=== PATIENT | female | born 2005 | race Caucasian/White ===

== ENCOUNTER 2023-05-30 14:29 | Emergency (ER) | payer MEDICAID, SELFPAY ==
[2023-05-30 14:30] VITALS: BP 131/80; PULSE 109; RESP 18; TEMP 36.6; O2SAT 93; BMI 39.3
--- NOTE | 2023-05-30 15:45 | EX.ED.DYSGE1 ---
HPI History of Present Illness Chief Complaint: Depression Informant: patient and spouse/S.O. Narrative Narrative: 18-year-old female 7 weeks G1, P0 presenting to the emergency room with depression. Patient states that in March she moved from [place] to [place] to be with her significant other's family. She is not currently working. She states that over the past months she has had worsening depression. She notes difficulty with sleep as well as some anorexia. She states that she feels hungry but when she attempts to eat or thinks about eating hunger dissipates. She occasionally has a cigarette. No alcohol use or drug use. She states that over the past 3 days she has been feeling worse. She has occasional intrusive thoughts of suicide but has no plan and does not believe that she will complete or attempt suicide. The patient states that she was seeing a counselor in the fourth of the fifth grade for depression. Otherwise she has not been treated for depression. She states that 1 or 2 weeks ago she filled out a questionnaire with her internet marketing strategist regarding depression symptoms. She does not know the results. She states that she has not had any complications with . She is taking vitamins but no other medications. PFSH PFSH Allergy/AdvReac Type Severity Reaction Status Date / Time No Known Allergies Allergy Verified 05/30/23 14:30 Social History Smoking Status: Current every day smoker tobacco type: e-cigarettes ROS ROS ED Constitutional Constitutional ED: Denies chills, fever(s) or weight loss Eyes Eyes: Denies change in vision or diplopia ENT ENT ED: Denies ear pain, rhinorrhea or sore throat Cardiovascular Cardiovascular: Denies chest pain, orthopnea, palpitations or racing heartbeat Respiratory/Chest Respiratory/Chest: Denies cough, dyspnea or orthopnea Gastrointestinal Gastrointestinal: Denies abdominal pain, diarrhea, nausea or vomiting Genitourinary Genitourinary ED: Denies dysuria, hematuria or urinary frequency Musculoskeletal Musculoskeletal: Denies arthralgias, myalgias or neck pain Integumentary Denies abscess or rash Neurologic Neurologic: Denies headache(s) or weakness Psychiatric Psychiatric: Reports depression and suicidal thoughts; Denies anxiety or suicidal ideation Endocrine Endocrinology: Denies polydipsia, polyphagia or polyuria Allergic/Immunologic Allergic/Immunologic ED: Denies mouth swelling, tongue swelling or urticaria EXAM Physical Exam Const Vital Signs: 05/30/23 14:30 Temperature 97.8 F Temperature Source Temporal Pulse Rate 109 H Respiratory Rate 18 Blood Pressure 131/80 H Blood Pressure Mean 97 Pulse Ox 93 Oxygen Delivery Method Room Air Positive well nourished and well developed General Appearance ED: well developed HEENT Reports normocephalic, head/scalp atraumatic and moist mucous membranes Eyes PERRL and EOMs intact bilaterally Neck no lymphadenopathy, supple and no JVD Resp normal respiratory effort and clear to auscultation bilaterally Cardio regular rate, regular rhythm and no murmurs GI normal to inspection, nondistended, normoactive bowel sounds and non-tender Palpation: soft Back/Spine no CVA tenderness and normal ROM Extremity normal to inspection General Extremety ED: Negative for edema General Extremity: Negative for edema Neuro oriented x3 and CN's II-XII intact bilaterally Sensorium / Orientation: alert Motor Exam: strength 5/5 throughout Psych mental status grossly normal Psych Narrative: Patient reports feeling depressed. She makes eye contact. She readily answers questions and provides details. I feel that she is forthcoming with information. She states that she has occasional thoughts of suicide but has no specific plan and the thoughts are intermittent in nature. Patient is well-kept. Appearance: grossly normal Attitude: calm and engaged Activity / Motor Behavior: appropriate eye contact Speech: normal speech Mood & Affect: depressed; Negative for tearful Thought Process: normal thought process Thought Content: normal thought content Attention / Concentration: attention grossly intact Memory / Cognition: memory grossly intact Insight: insight good Judgement: judgement good Skin no rashes or lesions noted and no wounds MDM MDM MDM Narrative Medical decision making narrative: I spoke with crisis/mental health counselor. I will have them speak with the patient. Patient was assessed by crisis. We are both in agreement that the patient is not actively suicidal. She would benefit from long-term help with her mental health. She was given resources and crisis will follow back up with her. Patient states that the plan is very clear to her and she plans on calling her [employer] resources tomorrow. History & Record Review Discussion w/independent historian: Patient and Significant other Management Discussion w/another healthcare provider: Behavioral health Discharge Plan Triage Chief Complaint: Depression ED Provider: Shaquille Arenas Dx/Rx/DC Orders Clinical Impression: Depression affecting in third trimester, antepartum Instructions: Depression: Tips to Help Yourself, CONTRACT, No Harm Primary Care Provider: Care Physician,No Primary Activity Restrictions/Additional Instructions: As discussed with crisis, please follow-up with Bryan lopez. If you feel you are worsening or potential danger to yourself or others please return to the nearest emergency department Disposition Disposition: Home, Self Care
[2023-05-30 17:39] VITALS: BP 126/97; PULSE 81; RESP 20; TEMP 36.6; O2SAT 100
== END 2023-05-30 17:40 | disposition home or self-care (01) ==
PROVIDERS: Emergency Provider Emergency Medicine; Visit Provider Emergency Medicine
DX: O99.341 Other mental disorders complicating pregnancy, first trimester (principal); R45.851 Suicidal ideations; F32.A Depression, unspecified; O99.331 Smoking (tobacco) complicating pregnancy, first trimester; F17.210 Nicotine dependence, cigarettes, uncomplicated; F17.290 Nicotine dependence, other tobacco product, uncomplicated; Z3A.01 Less than 8 weeks gestation of pregnancy
CPT/HCPCS: 99282

== ENCOUNTER 2023-08-26 09:00 | Inpatient (IN) | payer MEDICAID, SELFPAY ==
[2023-08-26] VITALS (17 sets, daily range): BP systolic 118–135; BP diastolic 58–79; PULSE 65–107; RESP 14–18; TEMP 36.4–36.9; O2SAT 99–100; BMI 44.2
--- NOTE | 2023-08-26 09:21 | PCM.HP.OB ---
HPI - General General Date of Admission: 08/26/23 Date of Service: 08/26/23 Chief Complaint: elective IOL HPI Narrative VANDANA DALE, is a 18 F who presents elevtive IOL with BMI>40 Maternal Data Information Final MIKE: 09/02/23 Gestational age: 39 PFSH PFSH Medical History Heartburn during Obesity HPV (human papilloma virus) infection Anxiety Depression Vaping nicotine dependence, tobacco product Allergy/AdvReac Type Severity Reaction Status Date / Time No Known Allergies Allergy Verified 08/26/23 10:19 Family History (Updated 08/26/23 @ 10:17 by Juju Cervantes) Father Addiction to drug Mother Addiction to drug Surgical History (Updated 08/26/23 @ 10:15 by Juju Cervantes) History of tonsillectomy and adenoidectomy Social History Smoking Status: Current every day smoker tobacco type: e-cigarettes History 1 Elective abortions Hx Para 0 Spontaneous abortions Hx # Term Pregnancies Ectopic pregnancies Hx # Pregnancies Multiple births # of living children NST FHR Rate Baby A Baseline: 130 Variability:: Moderate Accelerations:: 15 x 15 Decelerations:: None NST Reactive:: Yes FHR Category:: Category I Uterine Activity:: quiet ROS Constitutional Constitutional: Denies fatigue, fever(s) or malaise Eyes Eyes: Denies change in vision ENT HEENT: Denies dizziness or headache(s) Cardiovascular Cardiovascular: Denies chest pain, dyspnea or lightheadedness Respiratory/Chest Respiratory/Chest: Denies cough or dyspnea Gastrointestinal Gastrointestinal: Denies change in bowel habits Genitourinary Genitourinary: Denies burning urination or genital lesions Integumentary Integumentary: Denies rash Neurologic Neurologic: Denies confusion, dizziness, headache(s), numbness or weakness Physical Exam Const alert and no apparent distress General Appearance: cooperative HEENT normocephalic Resp normal respiratory effort GI soft to palpation GI Narrative: gravid, nontender, appropriate for gestational age Extremity no calf tenderness General Extremity: edema Skin no wounds Rashes: No rashes noted Psych activity/motor behavior normal Labs Labs Labs: Blood Type O POSITIVE Antibody Screen NEGATIVE Hct 33.8 % (37-47) L Hgb 11.0 g/dL (12.0-15.0) L Syphilis Total Ab Non-reactive Assessment & Plan (1) BMI greater than 40: (2) 39 weeks gestation of : PLAN: Plan Cytotec IOL Stringer bulb prn
[2023-08-26 09:55] LABS: Absolute Lymphocyte Count 2.48 X10^3/uL (0.83-4.51); Absolute Neutrophil Count 9.4 X10^3/uL (2.0-7.7); Basophil# 0.04 X10^3/uL; Basophil% 0.3 % (0-1); Eosinophil# 0.06 X10^3/uL; Eosinophils% 0.5 % (0-5); Hematocrit 33.8 % (37-47); Lymphocyte # 2.48 X10^3/ul (0.83-4.51); Lymphocyte % 19.1 % (19-41); Mean Corp Hgb Conc 32.5 g/dL (32-36); Mean Corpuscular Hgb 30.2 pg (27.0-32.0); Mean Corpuscular Volume 92.9 fL (81-99); Monocyte# 0.93 X10^3/uL; Monocyte% 7.2 % (0-10); NRBC Flagged by Analyzer 0 % (0-5); Neutrophil # 9.44 X10^3/uL (2.7-7.7); Neutrophil % 72.5 % (47-70); Platelet Count 246 K/mm3 (150-450); RBC Distribution Width CV 13.2 % (11.6-14.6); RBC Distribution Width SD 44.6 fl (35.1-43.9); Red Blood Count 3.64 M/mm3 (4.2-5.4)
[2023-08-26] MEDS: 0.9% Saline Lock 10 ML Syringe IV (10:09)
[2023-08-26] MEDS: miSOPROStol 25 MCG TABLET VAGINAL ×2 (10:09→14:08)
[2023-08-26 10:28] LABS: Syphilis Antibodies Non-reactive
--- NOTE | 2023-08-26 15:09 | PCM.PN.OB ---
Subjective Subjective Stringer bulb placed with 60 cc. without difficulty. 2/50/-2 Objective Data Objective Data Vital Signs: Vital Signs Temp Pulse Resp BP Pulse Ox 97.6 F L 67 16 118/58 L 99 08/26/23 11:02 08/26/23 11:58 08/26/23 11:57 08/26/23 11:58 08/26/23 11:57 Weight: 148.041 kg Body Mass Index (BMI) 44.2 Intake & Output: Intake and Output for Last 24 Hours 08/24/23 08/25/23 08/26/23 23:59 23:59 23:59 Output Total 250 / 250 Balance -250 / -250 Lab / Micro Data 08/26/23 09:45 Labs: Laboratory Results - last 24 hr 08/26/23 09:45: WBC 13.0 H, RBC 3.64 L, Hgb 11.0 L, Hct 33.8 L, MCV 92.9, MCH 30.2, MCHC 32.5, RDW Std Deviation 44.6 H, RDW Coeff of Shmuel 13.2, Plt Count 246, MPV 12.0, Immature Gran % (Auto) 0.400, Neut % (Auto) 72.5 H, Lymph % (Auto) 19.1, Laurens % (Auto) 7.2, Eos % (Auto) 0.5, Baso % (Auto) 0.3, Absolute Neuts (auto) 9.4 H, Absolute Lymphs (auto) 2.48, Nucleated RBC % 0, Syphilis Total Ab Non-reactive, Blood Type O POSITIVE, Antibody Screen NEGATIVE 08/26/23 14:08: Ur Drug Screen Comment NST FHR Rate Baby A Baseline: 150 FHR Category:: Category I Uterine Activity:: q 2 Assessment & Plan (1) 39 weeks gestation of : (2) BMI greater than 40: PLAN: Plan Pitocin when Stringer bulb out
[2023-08-26] MEDS: 0.9% Normal Saline Single 100 ML IV.SOLN. INTRA-UTER (15:10)
--- NOTE | 2023-08-26 15:12 | CASEMGMT ---
Social Work - Labor and Delivery Consult received for: substance abuse, resources and mental health Chart reviewed and noted patient/mother of baby still in labor. Noted in record that MOB has history of depression, with and ED visit to [facility] in May 2023 where MOB was assessed by crisis at [facility]. From records review it MOB was dealing with increased depression, and having some occasional suicidal ideations. Noted in record the reported father of baby reported to have some mental health history (Bipolar) as well. A safety plan was developed for MOB from the ED visit in May 2023. This service writer advisor also noted MOB with some history of THC use, with some occasional use within the last year. This service writer advisor spoke with MOB's labor RN Juju who confirms MOB still in labor. Updated RN of plan for social work to see MOB after delivery and prior to discharge home. MOB with increased risk for mood and anxiety disorders, based on mental history including exacerbation of such during the . Plan: Social work to actively follow for support, resources, and referrals as indicated. -NATIVIDAD Hill
[2023-08-26 16:27] LABS: Amphetamine Urine NEGATIVE (<1000 ng/mL); Barbiturate Urine NEGATIVE (< 200 ng/mL); Benzodiazepine Urine NEGATIVE (< 200 ng/mL); Cocaine Urine NEGATIVE (< 300 ng/mL); Ecstacy Urine NEGATIVE (< 500 ng/mL); Methadone Urine NEGATIVE (< 300 ng/mL); Opiates Urine NEGATIVE (< 300 ng/mL); PCP Urine NEGATIVE (< 25 ng/mL); THC Urine NEGATIVE (< 50 ng/mL); Vista UDS pH Range 6
--- NOTE | 2023-08-26 20:34 | PCM.PN.OB ---
Subjective Subjective AROM for clear fluid. IUPC and FSE placed. 3 cm/80/-2. Pitocin prn Objective Data Objective Data Vital Signs: Vital Signs Temp Pulse Resp BP Pulse Ox 98.4 F 72 17 130/68 H 100 08/26/23 19:22 08/26/23 19:23 08/26/23 19:22 08/26/23 19:21 08/26/23 19:23 Weight: 148.041 kg Body Mass Index (BMI) 44.2 Intake & Output: Intake and Output for Last 24 Hours 08/24/23 08/25/23 08/26/23 23:59 23:59 23:59 Output Total 250 / 250 Balance -250 / -250 Lab / Micro Data 08/26/23 09:45 Labs: Laboratory Results - last 24 hr 08/26/23 09:45: WBC 13.0 H, RBC 3.64 L, Hgb 11.0 L, Hct 33.8 L, MCV 92.9, MCH 30.2, MCHC 32.5, RDW Std Deviation 44.6 H, RDW Coeff of Shmuel 13.2, Plt Count 246, MPV 12.0, Immature Gran % (Auto) 0.400, Neut % (Auto) 72.5 H, Lymph % (Auto) 19.1, Woodson % (Auto) 7.2, Eos % (Auto) 0.5, Baso % (Auto) 0.3, Absolute Neuts (auto) 9.4 H, Absolute Lymphs (auto) 2.48, Nucleated RBC % 0, Syphilis Total Ab Non-reactive, Blood Type O POSITIVE, Antibody Screen NEGATIVE 08/26/23 14:08: Urine Opiates Screen NEGATIVE, Urine Methadone Screen NEGATIVE, Ur Barbiturates Screen NEGATIVE, Ur Phencyclidine Scrn NEGATIVE, Ur Amphetamines Screen NEGATIVE, MDMA (Ecstasy) Screen NEGATIVE, U Benzodiazepines Scrn NEGATIVE, Urine Cocaine Screen NEGATIVE, U Cannabinoids Screen NEGATIVE, Ur Drug Screen Comment NST FHR Rate Baby A Baseline: 140 Variability:: Moderate Accelerations:: 15 x 15 Decelerations:: None NST Reactive:: Yes FHR Category:: Category I Uterine Activity:: irregular Assessment & Plan (1) 39 weeks gestation of : (2) BMI greater than 40:
[2023-08-26] MEDS: Lactated Ringers 1,000 ML 50 ML IV (21:20)
[2023-08-26] MEDS: Oxytocin 15 Units/NS 250ml 15 UNITS/250 ML IV.SOLN 2 UNITS IV (21:25)
[2023-08-26] MEDS: Mag Hydrox/Al Hydrox/Simeth 30 ML UDC PO (23:45)
[2023-08-27] VITALS (97 sets, daily range): BP systolic 99–233; BP diastolic 49–104; PULSE 52–164; RESP 14–22; TEMP 36.1–36.9; O2SAT 96–100
[2023-08-27] MEDS: LACTATED RINGERS 500 ML 999 ML IV ×2 (00:30→02:42)
[2023-08-27] MEDS: fentaNYL-bupivacaine (epidural) 100 ML BAG EPIDURAL ×3 (00:50→12:23)
[2023-08-27] MEDS: Lactated Ringers 1,000 ML 200 ML IV ×3 (05:50→15:39)
[2023-08-27] MEDS: Ondansetron 4 MG/2 ML Vial IV (15:00)
--- NOTE | 2023-08-27 16:16 | EX.PCM.OBRPT ---
Assessment & Plan (1) 39 weeks gestation of : (2) BMI greater than 40: (3) (spontaneous vaginal delivery): Maternal Data Information Final MIKE: 09/02/23 Gestational age: 39+1 Vaginal Delivery Maternal Presentation Maternal Presentation: Medically Indicated Induction Maternal Presentation: IOL of labor BMI >40 Type of Induction: Pitocin, Stringer Bulb, Amniotomy and Cytotec Operative Information Date of Procedure: 08/27/23 Pre-Operative Diagnosis: Term Post-Operative Diagnosis: same Surgery / Procedure Performed: Spontaneous Vaginal Delivery Type of Anesthesia: Epidural Drain: Stringer to straight drain Estimated Blood Loss: 100 cc Time of Delivery: 16:03 Findings Description of Procedure: Patient progressed to complete over an intact perineum. Pushed through two contractions and delivered DIONISIO. The anterior and posterior shoulder delivered without difficulty. The infant was placed on the maternal abdomen. The cord was clamped and cut. Cord blood was collected. The placenta was delivered with manual traction. There were no lacerations. Presentation: Vertex and DIONISIO Amniotic Membrane Rupture Type: Artificial Amniotic Fluid Description: Clear Placental Delivery Description: Spontaneous Placenta Disposition: [facility] Cord Vessel Description: 3 Vessels Cord Entanglement: None Infant A Gender: Female (1 minute): 9 (5 minute): 9 Delayed Cord Clamping: Yes Post Vaginal Delivery Medications Given After Delivery: IV Pitocin Episiotomy Description: None Laceration: None Complication Complications: None
[2023-08-27] MEDS: Oxytocin 15 Units/NS 250ml 15 UNITS/250 ML IV.SOLN 83 UNITS IV (16:45)
[2023-08-27] MEDS: Ibuprofen 600 MG Tablet PO (17:54)
--- NOTE | 2023-08-27 23:15 | NURSING ---
Unable to measure urine due to small amount.
[2023-08-28] VITALS: BP 140/72; PULSE 68; RESP 16; TEMP 36.3; O2SAT 99
[2023-08-28 04:50] VITALS: BP 107/50; PULSE 68; RESP 18; TEMP 36.1; O2SAT 97
--- NOTE | 2023-08-28 06:39 | PCM.PN.OB ---
Subjective Subjective Feels good. Bleeding slowing down. Has attempted breast feeding and pumping. Will probably bottle feed. Minimal pain. Desires DC today. Will have BP check this week. Objective Data Objective Data Vital Signs: Vital Signs Temp Pulse Resp BP Pulse Ox O2 Del Method 97.4 F L 68 16 140/72 H 99 Room Air 08/28/23 00:00 08/28/23 00:00 08/28/23 00:00 08/28/23 00:00 08/28/23 00:00 08/28/23 00:00 Oxygen Delivery Method Room Air Weight: 148.041 kg Body Mass Index (BMI) 44.2 Intake & Output: Intake and Output for Last 24 Hours 08/26/23 08/27/23 08/28/23 23:59 23:59 23:59 Intake Total 129.3 / 129.3 4464.03 / 4464.03 Output Total 525 / 525 1550 / 1550 800 / 800 Balance -395.7 / -395.7 2914.03 / 2914.03 -800 / -800 Lab / Micro Data 08/26/23 09:45 Physical Exam Const alert and no apparent distress Narrative: Fundus firm, below umbilicus. Assessment & Plan (1) (spontaneous vaginal delivery): (2) 39 weeks gestation of : (3) BMI greater than 40: PLAN: Plan Discharge today
--- NOTE | 2023-08-28 06:43 | PCM.DC.SUM ---
Providers Date of Admission: 08/26/23 Date of Discharge: 08/28/23 Primary Care Physician: Chelo Primary Care Phys Reason For Visit: LABOR Diagnosis Discharge Diagnosis (1) (spontaneous vaginal delivery): Status: Acute Code(s): O80 - Encounter for full-term uncomplicated delivery (2) 39 weeks gestation of : Status: Acute Code(s): Z3A.39 - 39 weeks gestation of (3) BMI greater than 40: Status: Acute Plan Discharge today Medications at Discharge Home Medications ibuprofen 600 mg tablet 600 mg PO Q6H PRN PRN Pain Score 1-10 #30 tabs 08/28/23 Hospital Course Operations None Procedures None Summary of Care Provided Minutes Spent on Discharge: 20 Physical Exam Const alert and no apparent distress Narrative: Fundus firm, below umbilicus. Weight / BMI Weight Weight: 148.041 kg Body Mass Index (BMI) 44.2 ABG / Lab / Microbiology Data 08/26/23 09:45 D/C Instructions May resume sexual activity in: 6 weeks Please Follow Up With: Zeny Quezada MD When: Follow up with our office in 1-2 and 6 weeks or as needed. [phone] Meaningful Use Info Meaningful Use Meaningful Use Diagnoses (Choose all that apply): None applicable Ischemic Stroke Statin Dosing Therapy Reference: STATIN DOSE THERAPY REFERENCE: * Patients > 75 years receive moderate or high dose statin therapy. * Patients 75 years or YOUNGER should receive HIGH intensity statin dose unless contraindicated. You will be required to document reason for non-treatment if statin daily dose does not meet guidelines. HIGH DOSE STATIN THERAPY DAILY Atorvastatin > than or = to 40 mg Rosuvastatin > than or = to 20 mg Amlodipine + Atorvastatin > than or = to 2.5/40 mg Ezetimibe + Simvastatin 10/80 mg Simvastatin 80mg Discharge Plan Admission Admit Date/Time: 08/26/23 09:00 Primary Reason for Your Visit: Iunduction Attending Provider: Tenisha De Guzman Primary Care Provider: Care Physician,No Primary Discharge Orders/Prescriptions Prescriptions: New ibuprofen 600 mg Tablet 600 mg PO Q6H PRN PRN (Reason: Pain Score 1-10) Qty: 30 0RF Referrals / Follow Up: Care Physician,No Primary [Primary Care Provider] - Disposition Disposition (needs filled in before D/C Order can be placed): Home, Self Care
[2023-08-28 07:26] VITALS: BP 113/80; PULSE 77; RESP 16; TEMP 36.5; O2SAT 97
[2023-08-28] MEDS: Ibuprofen 600 MG Tablet PO (09:04)
[2023-08-28 13:20] VITALS: BP 134/80; PULSE 76; RESP 16; TEMP 36.3; O2SAT 98
[2023-08-28 17:26] VITALS: BP 137/68; PULSE 66; RESP 16; TEMP 36.6; O2SAT 100
--- NOTE | 2023-08-29 09:19 | CASEMGMT ---
Social Work Assessment Labor and Delivery Unit Patient Address: [address] [place] [address] Phone number: [phone] Date of Referral: 08/26/23 Time of Referral:? [id number] Referred By: Tenisha De Guzman Date of Intervention: ?08/28/23? Time of Intervention:? 1020 Reason for Referral:? resources, mental health Sw completed chart review and acknowledges social work consult due to maternal mental health history. Sw presented to bedside and introduced self to mother of baby (MOB- Karlos) and father of baby (FOB- Bladimir) who was asleep for beginning portion of assessment. Sw explained reason for sw involvement, and completed psychosocial assessment. Towards end of assessment, sw asked FOB to step out of room momentarily so that MOB could complete Slick Depression Scale. History obtained from: medical records, MOB and FOB Household composition: Currently residing in the family home is MOB, FOB and now baby when ready for discharge. MOB states that they live in a duplex, and they have friends that live opposite of them who are good supports to them. No issues or concerns with housing reported at this time. Patient's parent/guardian status:? ?MOB states that she and FOVince have been together for 2 years after meeting on [employer]. While meeting with MOB privately she denies any issues with domestic violence or intimate partner violence. Medical History: ?VERONICA is 18 year old female who is 1, para 0-now 1 following labor and delivery of . VERONICA received routine care during with [facility]. VERONICA presented to hospital for an elective induction of labor at 39 weeks gestation. VERONICA delivered baby on 08/27/23 via vaginal delivery. Baby girl, Alejandrina Arreguin, was born weighing 6lb 14oz with apgars of 9 and 9 at one and five minutes of life, respectfully. VERONICA states that she is doing a combination of feeding. Baby will be followed by Dr. Aguiar for pediatrics. Educational Status:?Both parents completed high school, FOB obtained some college education but did not graduate. JONATHAN reports that he did require an IEP in school for behavioral reasons and his school day was in the ED classroom. Financial Status: JONATHAN is gainfully employed outside of the home working for [employer]- he is able to take a couple of days off of work now that baby has been born. VERONICA is not working at this time. Infant Supplies:?? Parents have obtained all necessary baby supplies, including: car seat, safe sleep space, clothes, diapers and wipes. VERONICA states that she does have a breast pump. Childcare/Caregiver(s):? VERONICA will be the primary caregiver to baby along with JONATHAN when he is not working. VERONICA states that their friends who live next door can also help when necessary. Transportation:?? Both parents have their drivers license and reliable means of transportation. No barriers at this time. Programs/Agencies Involved: ?VERONICA is receiving services through [facility]. She has insurance and SNAP. VERONICA states that she is also connected to [facility] and has her first appointment scheduled with them. ?? Children Services/Legal Issues:??? No history of involvement. No referral being made at this time. Behavioral Health Issues: ??Mental Health History:??JONATHAN states that he has been diagnosed with depression and anxiety, Bipolar II disorder. JONATHAN reports that he has a psychiatrist that he meets with regularly. JONATHAN is prescribed Lamictal, Wellbutrin and Abilify. JONATHAN states that he has appropriate coping skills that he utilizes when he is able to tell that his mental health is starting to struggle. JONATHAN states that he attends [facility] services in [place] who help him manage his mental health. VERONICA states that she has been diagnosed with anxiety and depression, she is not prescribed anything at this time. VERONICA states that the biggest contributing factor to her mental health is the traumatic childhood that she had. VERONICA was recently evaluated in the emergency room by Crisis due to presenting with mental health concerns. At that time VERONICA was able to recognize that her and FOVince were struggling and fighting more. At that time VERONICA was encouraged to follow up with [facility]. Sw asked VERONIAC if she did, but MOB reports that she did not follow up with [facility]. VERONICA states that she is able to recognize a pattern to her and FOB's relationship. VERONICA stated that when FOB stops taking his medication, or if he forgets he becomes manic and she feels like she is parenting him. MOB states that they started to do a better job of monitoring FOB's meds so that they do not get missed. VERONICA denies thoughts of suicide or hurting herself. MOB completed Slick Depression Scale, her score was a 7. Sw provided education and support. ? Substance Use History:?MOB admits to using marijuana sporadically early on in . FOB admits to the same. ? Family History:?VERONICA states that her parents are both addicts and she is not close with them at this time. ? Drug Screens: ??MOB urine screen at time of delivery was negative. Baby meconium testing is still pending. Family/Social Stressors:? Current mental health of FOB is a stressor for MOB. However, MOB states that she is able to help FOB manage his mental health by ensuring that he stays on top of taking his medications as prescribed. MOB has history of anxiety and depression, is not prescribed medications or connected to any mental health services at this time. Support Systems: MOB states that FOVince and her Grandma are her biggest supports. Depression/Shaken Baby/Safe Sleeping:? Education on baby blues and anxiety and depression discussed with MOB and FOB. FOB states that if MOB were to struggle with symptoms during this period he would be able to recognize and would know how to help and support her. Sw educated parents on shaken baby prevention and ABCs of safe sleep. Parents expressed understanding. ASSESSMENT:?MOB and baby admitted following labor and delivery of . MOB and FOB both present and participated in completion of psychosocial assessment. MOB completed Slick Depression Scale, score was 7- education and support provided. MOB encouraged to touch base with her OBGYN or mental health professional if she can tell she is experiencing a decrease in her mood during the next couple of weeks. MOB receptive to that information. Baby in cribette during assessment, MOB looked at her lovingly and states that she does feel a connection with baby. MOB talkative and receptive to sw involvement and support. Sw informed MOB that a referral to Children Services may be warranted depending on baby's meconium drug screen results. MOB expressed understanding. Safe Plan of Care for related to substance use:? MOB reports that now that baby has been born she and FOB have no intentions of smoking marijuana or any other substances. PLAN:? MOB and baby to be discharged when ready. ?No other services requested or indicated. Mark Young, AIR CONDITIONING SHEET METAL INSTALLER, REVENUE ACCOUNTING MANAGER
== END 2023-08-28 18:05 | disposition home or self-care (01) | DRG 560 ==
PROVIDERS: Admitting Provider Obstetrics & Gynecology; Visit Provider Obstetrics & Gynecology
DX: O99.214 Obesity complicating childbirth (principal); Z37.0 Single live birth; E66.01 Morbid (severe) obesity due to excess calories; F17.290 Nicotine dependence, other tobacco product, uncomplicated; O99.334 Smoking (tobacco) complicating childbirth; Z3A.39 39 weeks gestation of pregnancy
CPT/HCPCS: 59025; 59050; 80307; 85025; 86780; 86850; 86900; 86901; 99221; A4216; G0378; J2405